=== PATIENT | male | born 1945 | race Caucasian/White ===

== ENCOUNTER 2016-10-15 10:37 | Emergency (ER) | payer MEDICARE, BC ==
[2016-05-13 09:12] VITALS: BMI 29.8
[~2016-10-15 10:37] MED LIST: ACETAMINOPHEN500 M1 PO; ARICEPT10 MG PO; ATIVAN1 MG PO; BETAPACE 80 MG80 MG PO; CLARITIN 10 MG10 MG PO; COLACE100 MG PO; GLIPIZIDE10 MG PO; GLUCOPHAGE1000 MG PO; LANTUS INSULIN10 ML SC; LISINOPRIL5 MG PO; NAMENDA XR28 MG PO; NEURONTIN800 MG PO; PLAVIX75 MG PO; PRADAXA150 MG PO; PRAVACHOL20 MG PO; REMERON15 MG PO; TRIAMCINOLONE A17 GM NASAL
[2016-10-15 13:18] LABS: BASOPHILS 0.2 % (0.0-2.0); EOSINOPHILS 0.5 % (0-7); HEMATOCRIT 40.8 % (42.0-54.0); HEMOGLOBIN 13.8 g/dL (13.5-17.5); IMMATURE GRANULOCYTES 0.4 % (0-5); LYMPHOCYTES 7.6 % (15-50); MCH 30.6 pg (26.0-34.0); MCHC 33.8 g/dL (31.0-37.0); MCV 90.5 fL (80.0-100.0); MEAN PLATELET VOLUME 10.8 fL (7.4-10.4); MONOCYTES 5.7 % (2-11); NEUTROPHILS 85.6 % (40-80); PLATELET COUNT 178 10x3/uL (130-400); RBC 4.51 10x6/uL (4.20-6.10); RDW 12.6 % (11.5-14.5); WBC 10.9 10x3/uL (4.8-10.8)
[2016-10-15 13:28] LABS: CALC OSMOLALITY 287 mosm/kg (275-300); CALCIUM 9.4 mg/dL (8.5-10.1); CARBON DIOXIDE 26.1 mmol/L (21.0-32.0); CHLORIDE - SERUM 99 mmol/L (98-107); POTASSIUM - SERUM 4.8 mmol/L (3.5-5.1); SODIUM 136 mmol/L (136-145); UREA NITROGEN 23 mg/dL (7-18); eGFR NON AFRICAN AMERICAN 78 mL/min (90-120)
[2016-10-15 13:29] LABS: GLUCOSE 307 mg/dL (74-106)
== END 2016-10-15 14:04 | disposition home or self-care (01) ==
LOC: D.ER 10:37
PROVIDERS: Nurse Practitioner Acute Care
DX: S20.229A Contusion of unspecified back wall of thorax, initial encounter (principal); W19.XXXA Unspecified fall, initial encounter; Y93.89 Activity, other specified; Y92.019 Unspecified place in single-family (private) house as the place of occurrence of the external cause; S39.012A Strain of muscle, fascia and tendon of lower back, initial encounter; K52.9 Noninfective gastroenteritis and colitis, unspecified; I73.9 Peripheral vascular disease, unspecified